=== PATIENT | female | born 1965 | race Two or more races ===

== ENCOUNTER 2017-09-28 16:39 | Emergency (ER) | payer BC, OTHER ==
[~2017-09-28] VITALS: Ht 157.5 cm; Wt 77.1 kg
[~2017-09-28 16:39] MED LIST: PROZAC
[2017-09-28 17:31] VITALS: BP 151/90
[2017-09-28] MEDS ORDERED: HYDROmorphone HCL 2 MG/ML VL IM ONE (17:45)
[2017-09-28] MEDS ORDERED: ONDANSETRON HCL 4 MG/2 ML VIAL IM ONE (17:45)
== END 2017-09-28 18:10 | disposition home or self-care (01) ==
LOC: ER 16:39
DX: S93.401A Sprain of unspecified ligament of right ankle, initial encounter (principal); M77.31 Calcaneal spur, right foot; J45.909 Unspecified asthma, uncomplicated; E11.9 Type 2 diabetes mellitus without complications; I10 Essential (primary) hypertension; Z90.49 Acquired absence of other specified parts of digestive tract; Z90.710 Acquired absence of both cervix and uterus; Z90.89 Acquired absence of other organs; W01.0XXA Fall on same level from slipping, tripping and stumbling without subsequent striking against object, initial encounter; Y93.89 Activity, other specified; Y99.8 Other external cause status; Y92.89 Other specified places as the place of occurrence of the external cause
CPT/HCPCS: 73610; 96372; 99284; J1170; J2405

== ENCOUNTER 2022-03-06 09:18 | Emergency (ER) | payer BC, OTHER ==
[~2022-03-06] VITALS: Ht 154.9 cm; Wt 75.7 kg
[2022-03-06 09:20] VITALS: BP 158/102
[2022-03-06] MEDS ORDERED: cloNIDine HCL 0.1 MG TAB PO ONE (09:45)
[2022-03-06] MEDS ORDERED: KETOROLAC TROMETH 60MG/2ML VIAL IM ONE (12:00)
[2022-03-06] MEDS ORDERED: CARISOPRODOL 350 MG TAB PO ONE (12:00)
[2022-03-06] MEDS ORDERED: IBU600T PO (12:07)
[2022-03-06 13:36] LABS: Urine Bacteria NONE SEEN /hpf (None Seen); Urine Blood Negative /uL (Negative); Urine Mucus FEW (None Seen); Urine Specific Gravity 1.028 (1.001-1.035); Urine WBC 3 /hpf (0 - 5)
== END 2022-03-06 14:06 | disposition home or self-care (01) ==
LOC: ER 09:18
DX: S33.5XXA Sprain of ligaments of lumbar spine, initial encounter (principal); M54.16 Radiculopathy, lumbar region; J45.909 Unspecified asthma, uncomplicated; E11.9 Type 2 diabetes mellitus without complications; I10 Essential (primary) hypertension; Z90.710 Acquired absence of both cervix and uterus; Z90.49 Acquired absence of other specified parts of digestive tract; X58.XXXA Exposure to other specified factors, initial encounter; Y93.89 Activity, other specified; Y92.89 Other specified places as the place of occurrence of the external cause; Y99.8 Other external cause status
CPT/HCPCS: 72110; 81001; 93005; 96372; 99285; J1885